=== PATIENT | female | born 1935 | race Caucasian/White ===

== ENCOUNTER → 2016-05-31 | Outpatient (CLI) | payer MEDICARE, OTHER ==
[~2016-05-31] VITALS: Ht 165.1 cm; Wt 82.6 kg
== END ==
LOC: OPSV 08:50
DX: D83.9 Common variable immunodeficiency, unspecified (principal); Z88.1 Allergy status to other antibiotic agents
CPT/HCPCS: 36415; 96365; 96366; J1572; J1642

== ENCOUNTER → 2016-07-05 | Outpatient (CLI) | payer MEDICARE, OTHER ==
[~2016-07-05] VITALS: Ht 165.1 cm; Wt 82.6 kg
== END ==
LOC: OPSV 08:55
DX: D83.9 Common variable immunodeficiency, unspecified (principal)
CPT/HCPCS: 96365; 96366; J1572; J1642

== ENCOUNTER → 2016-08-04 | Outpatient (CLI) | payer MEDICARE, OTHER ==
[~2016-08-04] VITALS: Ht 165.1 cm; Wt 82.6 kg
== END ==
LOC: OPSV 09:00
DX: D83.9 Common variable immunodeficiency, unspecified (principal)
CPT/HCPCS: 96365; 96366; J1568; J1642

== ENCOUNTER → 2016-09-01 | Outpatient (CLI) | payer MEDICARE, OTHER ==
[~2016-09-01] VITALS: Ht 165.1 cm; Wt 82.6 kg
== END ==
LOC: OPSV 08:14
DX: D83.9 Common variable immunodeficiency, unspecified (principal)
CPT/HCPCS: 96365; 96366; 96375; 96376; J1568; J1642

== ENCOUNTER 2020-08-14 12:40 | Emergency (ER) | payer MEDICARE, OTHER ==
[2020-08-14 14:13] LABS: HEMOGLOBIN 10.5 gm/dl (12.3-15.3); RED BLOOD COUNT 3.72 M/UL (4.00-5.10); WHITE BLOOD COUNT 7.3 K/UL (4.5-11.0)
[2020-08-14 14:52] LABS: BUN/CREATININE RATIO 18 (0-10)
[2020-08-14] MEDS ORDERED: ZITHROMAX250 MG PO (18:06)
== END 2020-08-14 19:00 | disposition home or self-care (01) ==
LOC: ER1 12:40
PROVIDERS: Physician Assistant
DX: S82.001A Unspecified fracture of right patella, initial encounter for closed fracture (principal); S40.011A Contusion of right shoulder, initial encounter; S20.212A Contusion of left front wall of thorax, initial encounter; J44.0 Chronic obstructive pulmonary disease with (acute) lower respiratory infection; J18.9 Pneumonia, unspecified organism; M19.90 Unspecified osteoarthritis, unspecified site; E11.9 Type 2 diabetes mellitus without complications; W01.0XXA Fall on same level from slipping, tripping and stumbling without subsequent striking against object, initial encounter; Y92.009 Unspecified place in unspecified non-institutional (private) residence as the place of occurrence of the external cause
CPT/HCPCS: 70450; 70486; 71046; 73030; 73564; 73590; 73610; 80053; 82550; 82553; 83874; 83880; 84484; 85025; 93005; 99284

== ENCOUNTER → 2020-08-27 | Outpatient (CLI) | payer MEDICARE, OTHER ==
[~2020-08-27] MED LIST: ZITHROMAX250 MG PO
== END ==
LOC: LBRF 12:00
DX: J47.9 Bronchiectasis, uncomplicated (principal)
CPT/HCPCS: 87070; 87077; 87186; 87205

== ENCOUNTER → 2021-04-28 | Outpatient (CLI) | payer MEDICARE, OTHER | LOC: HEART CORB 10:06 | DX: I48.92 Unspecified atrial flutter (principal); I50.32 Chronic diastolic (congestive) heart failure; Z79.01 Long term (current) use of anticoagulants | CPT/HCPCS: 93306 ==